=== PATIENT | female | born 1950 | race Caucasian/White ===

== ENCOUNTER 2016-05-05 21:37 | Emergency (ER) | payer MEDICARE, OTHER ==
[~2016-05-05] VITALS: Ht 165.1 cm; Wt 71.8 kg
[~2016-05-05 21:37] MED LIST: BACL10TA PO; DIAZ5 PO; DOXY150T PO; FOLI1 PO; GABA-533 PO; HYDR2 PO; MAGNESIUM PO; MYCO500T5 PO; OXYC5CAP3 PO; PANT40TA25 PO; PROZ10 PO; ROSU10 PO; TACR1 PO; URSODIOL PO
[2016-05-05] MEDS ORDERED: KETOROLAC TROMETHAMINE 30 MG/ML VIAL IM ONE (22:30)
[2016-05-05] MEDS ORDERED: LIDOCAINE HCL BUFFERED 1% 20 ML VIAL INJ ONE (23:30)
[2016-05-05 23:40] VITALS: BP 156/67
== END 2016-05-05 23:58 | disposition home or self-care (01) ==
LOC: EMS 21:37
DX: S60.011A Contusion of right thumb without damage to nail, initial encounter (principal); W23.1XXA Caught, crushed, jammed, or pinched between stationary objects, initial encounter; Y93.89 Activity, other specified; Y92.89 Other specified places as the place of occurrence of the external cause; Y99.8 Other external cause status
CPT/HCPCS: 11740; 73130; 96372; 99284; J1885; J3490

== ENCOUNTER → 2016-12-10 | Outpatient (CLI) | payer MEDICARE, OTHER ==
[~2016-12-10] MED LIST changes: +OXYC5CAP19 PO; -OXYC5CAP3 PO
== END | disposition home or self-care (01) ==
LOC: RADMN 10:03
PROVIDERS: ATTEND Specialist
DX: M48.02 Spinal stenosis, cervical region (principal); M25.78 Osteophyte, vertebrae; M43.22 Fusion of spine, cervical region
CPT/HCPCS: 72141

== ENCOUNTER → 2017-07-14 | Outpatient (CLI) | payer MEDICARE, OTHER | END | disposition home or self-care (01) | LOC: RADMN 10:20 | PROVIDERS: ATTEND Specialist | DX: I67.2 Cerebral atherosclerosis (principal); I67.82 Cerebral ischemia; S09.90XD Unspecified injury of head, subsequent encounter; M25.552 Pain in left hip; M25.562 Pain in left knee; Z96.652 Presence of left artificial knee joint; X58.XXXD Exposure to other specified factors, subsequent encounter | CPT/HCPCS: 70450; 73503 ==

== ENCOUNTER 2018-08-01 09:21 | Emergency (ER) | payer MEDICARE, OTHER ==
[~2018-08-01] VITALS: Ht 154.9 cm; Wt 68.0 kg
[~2018-08-01 09:21] MED LIST changes: -ROSU10 PO; +ROSU10TA22 PO
[2018-08-01] MEDS ORDERED: HYDROmorphone 2 MG/ML SYRINGE IM ONE (10:30)
[2018-08-01 12:11] VITALS: BP 150/87
== END 2018-08-01 12:27 | disposition home or self-care (01) ==
LOC: EMS 09:24
DX: G89.29 Other chronic pain (principal); M54.5 Low back pain; E78.00 Pure hypercholesterolemia, unspecified; I10 Essential (primary) hypertension; Z79.899 Other long term (current) drug therapy; Z96.659 Presence of unspecified artificial knee joint; Z86.19 Personal history of other infectious and parasitic diseases; Z98.890 Other specified postprocedural states
CPT/HCPCS: 96372; 99283; J1170